=== PATIENT | male | born 1945 | race Caucasian/White ===

== ENCOUNTER 2023-10-16 14:37 | Emergency (ER) | payer OTHER ==
[~2023-10-16] VITALS: Ht 182.9 cm; Wt 95.3 kg
[2023-10-16 14:45] VITALS: BP_SYST 138; PULSE 76; RESP 20; TEMP 98; O2SAT 99
[2023-10-16 15:57] VITALS: BP_SYST 138; PULSE 76; RESP 20; TEMP 98; O2SAT 99
== END 2023-10-16 15:55 | disposition home or self-care (01) ==
LOC: SED 14:37
DX: S00.03XA Contusion of scalp, initial encounter (principal); Z90.49 Acquired absence of other specified parts of digestive tract; W01.0XXA Fall on same level from slipping, tripping and stumbling without subsequent striking against object, initial encounter; Y93.89 Activity, other specified; Y92.89 Other specified places as the place of occurrence of the external cause; Y99.8 Other external cause status
CPT/HCPCS: 70450-TC; 99284